=== PATIENT | female | born 1990 | race Native Hawaiian/Other Pacific Islander ===

== ENCOUNTER 2021-10-10 08:53 | Outpatient (CLI) | payer BC | END 2021-10-10 19:04 | disposition home or self-care (01) | LOC: US 08:53 | PROVIDERS: ATTEND Urology | DX: N30.20 Other chronic cystitis without hematuria (principal) ==

== ENCOUNTER 2021-11-18 11:04 | Outpatient (CLI) | payer BC | END 2021-11-18 19:51 | disposition home or self-care (01) | LOC: US 11:04 | PROVIDERS: ATTEND Physician Assistant | DX: R10.2 Pelvic and perineal pain (principal); R11.0 Nausea; R10.31 Right lower quadrant pain ==